=== PATIENT | male | born 1945 | race Caucasian/White ===

== ENCOUNTER 2019-12-10 15:28 | Emergency (ER) | payer MEDICARE, OTHER ==
[2019-12-10 16:42] LABS: ALT (SGPT) 81 U/L (8-55); AST (SGOT) 116 U/L (5-34); Albumin 4.2 g/dL (3.4-4.8); Alkaline Phosphatase 104 U/L (40-110); Anion Gap 20 mmol/L (10-20); BUN (Urea Nitrogen) 21 mg/dL (8.4-25.7); Bilirubin, Total 0.8 mg/dL (0.2-1.2); Calc. Creatinine Clearance 0 mL/min (70-130); Calcium 10.4 mg/dL (7.8-10.44); Carbon Dioxide 22 mmol/L (23-31); Chloride 98 mmol/L (98-107); Estimated GFR-MDRD 55; Globulin 3.3 g/dL (2.4-3.5); Glucose 106 mg/dL (83-110); Protein, Total 7.5 g/dL (5.8-8.1); Sodium 135 mmol/L (136-145)
[2019-12-10 16:51] LABS: #Basophils 0.1 thou/uL (0.0-0.2); #Lymphocytes 0.7 thou/uL (1.20-3.40); #Monocytes 0.7 thou/uL (0.11-0.59); #Neutrophils 3.9 thou/uL (1.40-6.50); %Basophils 1.2 % (0.0-1.0); %Eosinophils 0.7 % (0.0-10.0); %Lymphocytes 13.1 % (21.0-51.0); %Monocytes 12.9 % (0.0-10.0); Hemoglobin 11.7 g/dL (14.0-18.0); MDiff Complete? YES; Macrocytosis SLIGHT = 6-15 cells (100X) (0-5/hpf); Mean Corpuscular HGB CONC 34.1 g/dL (32.0-36.0); Mean Corpuscular Hemoglobin 34.3 pg (27.0-31.0); Mean Corpuscular Volume 100.7 fL (78.0-98.0); Mean Platelet Volume 5.6 fL (7.4-10.4); Platelet Count 122 thou/uL (130-400); Polychromasia SLIGHT = 2-3 cells (100X) (0-2/hpf); RBC Distribution Width 13.9 % (11.5-14.5); Red Blood Cell (RBC) Count 3.41 mill/uL (4.70-6.10); White Blood Cell (WBC) Count 5.3 thou/uL (4.8-10.8)
--- NOTE | 2019-12-10 17:06 | CT ---
CT BRAIN WITHOUT CONTRAST: 12/10/19 HISTORY: Fall. Trauma to the back of the head with loss of consciousness. COMPARISON: 08/25/19. There is a new right hemispheric fluid collection without evidence of acute hemorrhage. This likely r epresents a subacute to chronic right subdural hematoma. No midline shift is seen. Changes of cortica l atrophy and chronic small vessel ischemic disease again seen. No evidence of acute infarct, intra-a xial hemorrhage identified. The ventricular size is stable. The basilar cisterns are patent. There ar e mucosal retention cysts versus polyps in the maxillary sinuses. IMPRESSION: New right sided subacute/chronic subdural hematoma since 08/25/19. POS: OFF
[2019-12-10 17:28] LABS: INR-International Normal Ratio 1.1; Prothrombin Time 13.9 sec (12.0-14.7)
[2019-12-10 17:29] LABS: PTT 27.5 sec (22.9-36.1)
[2019-12-10] MEDS ORDERED: levETIRAcetam 500 MG/100 ML PREMIX BAG ONE (18:06)
== END 2019-12-10 19:05 | disposition short-term general hospital (02) ==
LOC: MADERS 15:28
DX: S06.5X9A Traumatic subdural hemorrhage with loss of consciousness of unspecified duration, initial encounter (principal); I10 Essential (primary) hypertension; D64.9 Anemia, unspecified; Z79.899 Other long term (current) drug therapy; Z87.891 Personal history of nicotine dependence; W18.30XA Fall on same level, unspecified, initial encounter
CPT/HCPCS: 36415; 70450; 80053; 84484; 85025; 85610; 85730; 93005; 96365; J1953

== ENCOUNTER 2020-11-24 12:42 | Outpatient (CLI) | payer MEDICARE | END 2020-11-24 12:43 | disposition home or self-care (01) | LOC: MADLAB 12:42 → MADRAD 12:43 | PROVIDERS: ATTEND Surgery | DX: S22.009A Unspecified fracture of unspecified thoracic vertebra, initial encounter for closed fracture (principal) | CPT/HCPCS: 72070 ==

== ENCOUNTER 2021-01-04 14:49 | Outpatient (CLI) | payer MEDICARE | END 2021-01-04 14:50 | disposition home or self-care (01) | LOC: MADRAD 14:49 | PROVIDERS: ATTEND Surgery | DX: S22.009A Unspecified fracture of unspecified thoracic vertebra, initial encounter for closed fracture (principal) | CPT/HCPCS: 72070 ==